=== PATIENT | female | born 1960 | race Caucasian/White ===

== ENCOUNTER → 2018-02-13 | Outpatient (CLI) | payer OTHER ==
[~2018-02-13] MED LIST: ATOR80 PO; ATORVASTATIN; CITA20 PO; HORMONES; LAMO100 PO; LISI5 PO; MEDICAL MARIJUANA; PROGESTERONE; QUET300 PO; Zofran4 MG PO
== END ==
LOC: LAB 10:51 → LAB SHORT 10:51
PROVIDERS: Obstetrics & Gynecology
DX: Z01.419 Encounter for gynecological examination (general) (routine) without abnormal findings (principal)
CPT/HCPCS: 87624; G0123

== ENCOUNTER → 2018-02-25 | Outpatient (CLI) | payer OTHER | END | disposition home or self-care (01) | LOC: PLD 12:38 → LAB SHORT 12:38 | DX: R87.810 Cervical high risk human papillomavirus (HPV) DNA test positive (principal) | CPT/HCPCS: 88305 ==

== ENCOUNTER → 2019-02-25 | Outpatient (CLI) | payer OTHER ==
[2019-02-27 15:06] LABS: HPV 16 Positive (Negative); HPV 18 Negative (Negative); HPV OTHER HR TYPES Negative (Negative)
== END | disposition home or self-care (01) ==
LOC: LAB 15:37 → LAB SHORT 15:37
PROVIDERS: Nurse Practitioner Obstetrics & Gynecology
DX: Z01.419 Encounter for gynecological examination (general) (routine) without abnormal findings (principal)
CPT/HCPCS: 87624; 87625; G0123

== ENCOUNTER → 2019-05-02 | Outpatient (CLI) | payer OTHER | END | disposition home or self-care (01) | LOC: LAB 11:51 → LAB SHORT 11:51 | DX: N89.9 Noninflammatory disorder of vagina, unspecified (principal) | CPT/HCPCS: 87529 ==

== ENCOUNTER → 2019-05-02 | Outpatient (CLI) | payer OTHER | END | disposition home or self-care (01) | LOC: LAB 14:14 → LAB SHORT 14:14 | DX: R87.618 Other abnormal cytological findings on specimens from cervix uteri (principal) | CPT/HCPCS: 88305 ==

== ENCOUNTER → 2019-09-08 | Outpatient (CLI) | payer OTHER ==
[2019-09-09 14:32] LABS: Stool Occult Bld Immuno 1 Positive (NEGATIVE)
== END ==
LOC: LAB SHORT 10:51 → LAB 10:51
PROVIDERS: Nurse Practitioner Family
DX: Z12.11 Encounter for screening for malignant neoplasm of colon (principal)
CPT/HCPCS: G0328

== ENCOUNTER → 2019-10-13 | Outpatient (CLI) | payer OTHER | END | disposition home or self-care (01) | LOC: LAB SHORT 09:28 → PLD 09:28 | DX: L57.0 Actinic keratosis (principal) | CPT/HCPCS: 88305 ==

== ENCOUNTER 2019-12-01 12:12 | Day surgery (SDC) | payer OTHER ==
[~2019-12-01] VITALS: Ht 175.3 cm; Wt 91.6 kg
[~2019-12-01 12:12] MED LIST changes: +ATOR40TA PO; +FENO160 PO; +LEVO-T125 MC1 PO; +Omega-31000 MG PO; +Prinivil10 MG PO; +WOMEN'S 50 PLU1 EACH PO; +[UNRECOGNIZED DRUG - OTHER]
--- NOTE | 2019-12-01 15:36 | NUR ---
12/01/19 1536 Concetta Garcia WHEN ASKED PT. IF SHE HAD ANY PAIN, PT. VERBALIZED FEELING "FULL", LIKE HAVING GAS IN HER COLON. PT. INSTRUCTED TO GO AHEAD & PASS OUT AIR IF FELT LIKE SHE NEEDED TO BUT EVENTUALLY THE AIR WOULD ABSORB SINCE IT WAS CARBON DIOXIDE.
== END 2019-12-01 15:35 | disposition home or self-care (01) ==
LOC: ORSCSDS 12:12
PROVIDERS: Student in an Organized Health Care Education/Training Program
PROC: 0DBB8ZX Excision of Ileum, Via Natural or Artificial Opening Endoscopic, Diagnostic (ICD-10-PCS; principal; 2019-12-01 14:30)
PROC: 0DBL8ZX Excision of Transverse Colon, Via Natural or Artificial Opening Endoscopic, Diagnostic (ICD-10-PCS; principal; 2019-12-01 14:30)
PROC: 0DBK8ZX Excision of Ascending Colon, Via Natural or Artificial Opening Endoscopic, Diagnostic (ICD-10-PCS; principal; 2019-12-01 14:30)
PROC: 0DBM8ZX Excision of Descending Colon, Via Natural or Artificial Opening Endoscopic, Diagnostic (ICD-10-PCS; principal; 2019-12-01 14:30)
PROC: 0DBP8ZX Excision of Rectum, Via Natural or Artificial Opening Endoscopic, Diagnostic (ICD-10-PCS; principal; 2019-12-01 14:30)
DX: R19.5 Other fecal abnormalities (principal); Z86.010 Personal history of colon polyps; D12.4 Benign neoplasm of descending colon; D12.2 Benign neoplasm of ascending colon; D12.3 Benign neoplasm of transverse colon; K62.1 Rectal polyp; K57.30 Diverticulosis of large intestine without perforation or abscess without bleeding; I10 Essential (primary) hypertension; E03.9 Hypothyroidism, unspecified; Z79.899 Other long term (current) drug therapy
CPT/HCPCS: 88305; J2704; J7120

== ENCOUNTER 2021-09-01 07:13 | Day surgery (SDC) | payer OTHER ==
[~2021-09-01] VITALS: Ht 175.3 cm; Wt 102.0 kg
== END 2021-09-01 10:20 | disposition home or self-care (01) ==
LOC: ORSCSDS 07:13
PROVIDERS: Obstetrics & Gynecology
PROC: 0UBC7ZX Excision of Cervix, Via Natural or Artificial Opening, Diagnostic (ICD-10-PCS; principal; 2021-09-01 08:30)
DX: N87.1 Moderate cervical dysplasia (principal); R87.810 Cervical high risk human papillomavirus (HPV) DNA test positive; I10 Essential (primary) hypertension; E78.5 Hyperlipidemia, unspecified; G61.0 Guillain-Barre syndrome; Z79.899 Other long term (current) drug therapy
CPT/HCPCS: 88305; J2250; J2370; J2704; J3010; J7120

== ENCOUNTER 2022-07-18 02:31 | Day surgery (SDC) | payer OTHER | END 2022-07-18 22:47 | disposition home or self-care (01) | LOC: WOUND 02:31 | DX: T21.34XD Burn of third degree of lower back, subsequent encounter (principal); T25.311D Burn of third degree of right ankle, subsequent encounter; T25.312D Burn of third degree of left ankle, subsequent encounter; T22.20XD Burn of second degree of shoulder and upper limb, except wrist and hand, unspecified site, subsequent encounter; T22.21 Burn of second degree of forearm; T24.111 Burn of first degree of right thigh; T25.221S Burn of second degree of right foot, sequela; X08.8XXS Exposure to other specified smoke, fire and flames, sequela; T31.20 Burns involving 20-29% of body surface with 0% to 9% third degree burns; I10 Essential (primary) hypertension; F31.70 Bipolar disorder, currently in remission, most recent episode unspecified; E03.9 Hypothyroidism, unspecified; D62 Acute posthemorrhagic anemia ==

== ENCOUNTER 2023-09-27 11:32 | Day surgery (SDC) | payer OTHER ==
[2023-09-25 11:56] LABS: BASOPHILS PERCENT AUTO 1 % (0-2); EOSINOPHILS ABSOLUTE AUTO 0.36 K/mm3 (0.00-0.68); EOSINOPHILS PERCENT AUTO 5 % (0-6); Hematocrit 37.3 % (33.0-51.0); Hemoglobin 12.3 g/dL (11.5-16.0); IMMATURE GRAN ABSOLUTE AUTO 0.07 K/mm3 (0.00-0.10); IMMATURE GRAN PERCENT AUTO 1 % (0-1); LYMPHOCYTES PERCENT AUTO 45 % (21-46); MONOCYTES ABSOLUTE AUTO 0.42 K/mm3 (0.16-1.47); MONOCYTES PERCENT AUTO 6 % (4-13); Mean Corpuscular HGB 29.6 pg (26.0-34.0); Mean Corpuscular Volume 90 fL (80-100); Mean Platelet Volume 10.2 fL (9.1-12.4); NEUTROPHILS PERCENT AUTO 41 % (41-73); Platelet Count 220 K/mm3 (150-400); RDW Coefficient Variation 12.9 % (11.7-14.2); RDW Standard Deviation 42.5 fL (35.1-46.3); Red Blood Cell Count 4.16 M/mm3 (3.80-5.20); White Blood Cell Count 7.05 K/mm3 (4.00-11.30)
[2023-09-25 13:39] LABS: Bun/Creatinine Ratio 19.3 (12.0-20.0); Calcium, Blood 8.8 mg/dL (8.5-10.1); Creatinine, Blood 0.83 mg/dL (0.40-1.00); Potassium, Blood 3.9 mmol/L (3.5-5.5)
[~2023-09-27] VITALS: Ht 175.3 cm; Wt 99.9 kg
[2023-09-27] VITALS (16 sets, daily range): BP systolic 126–163; BP diastolic 71–99
[2023-09-27] MEDS ORDERED: MIRT15ST PO (12:44)
[2023-09-27] MEDS ORDERED: VENL25 PO (12:44)
--- NOTE | 2023-09-27 13:02 | NUR ---
Ambulatory in Day Surgery Patient confirms NPO status and agrees with scheduled surgery. Pre-Op teaching done. Pt verbalizes understanding. History, Chart, Medications and Allergies reviewed before start of procedure.
--- NOTE | 2023-09-27 19:26 | NUR ---
ASSUMPTION OF CARE REPORT RECEIVED FROM RACHEAL CADENA. PT RECENTLY ARRIVED TO THE FLOOR AFTER SURGERY. PT REPORTS DISCOMFOT IN ABD. 02 SAT >95% ON 2L NC. PT VERY DROWSY AT THIS TIME. PINEDA DRAINING TO GRAVITY. CALL LIGHT WITHIN REACH, BED IN LOWEST POSITION.
[2023-09-28 04:17] VITALS: BP 106/66
[2023-09-28 04:37] LABS: BASOPHILS ABSOLUTE AUTO 0.02 K/mm3 (0.00-0.23); BASOPHILS PERCENT AUTO 0 % (0-2); EOSINOPHILS PERCENT AUTO 0 % (0-6); Hematocrit 34.7 % (33.0-51.0); Hemoglobin 11.6 g/dL (11.5-16.0); IMMATURE GRAN ABSOLUTE AUTO 0.07 K/mm3 (0.00-0.10); IMMATURE GRAN PERCENT AUTO 1 % (0-1); LYMPHOCYTES ABSOLUTE AUTO 1.51 K/mm3 (0.84-5.20); LYMPHOCYTES PERCENT AUTO 13 % (21-46); MONOCYTES ABSOLUTE AUTO 0.43 K/mm3 (0.16-1.47); MONOCYTES PERCENT AUTO 4 % (4-13); Mean Corpuscular HGB 29.8 pg (26.0-34.0); Mean Corpuscular HGB Conc 33.4 g/dL (31.5-36.5); Mean Corpuscular Volume 89 fL (80-100); Mean Platelet Volume 10.2 fL (9.1-12.4); NEUTROPHILS ABSOLUTE AUTO 9.21 K/mm3 (1.96-9.15); NEUTROPHILS PERCENT AUTO 82 % (41-73); Platelet Count 215 K/mm3 (150-400); RDW Coefficient Variation 12.5 % (11.7-14.2); RDW Standard Deviation 40.8 fL (35.1-46.3); Red Blood Cell Count 3.89 M/mm3 (3.80-5.20); White Blood Cell Count 11.24 K/mm3 (4.00-11.30)
--- NOTE | 2023-09-28 06:19 | NUR ---
SHIFT SUMMARY POD 1 TOTAL LAP HYSTR. NO ACUTE CHANGES OVERNIGHT. VS WNL FOR PT. LAP SITE x4 C/D/I. PT REPORTS PAIN TOLERABLE, MEDICATED PER EMAR. PT AMBULATED IN THE HALLS x2 c FWW OVERNIGHT, TOLERATED WELL. PINEDA D/C'd THIS AM, YELLOW URINE WITHOUT CLOTS. PT WEARING ATTENS, SCANT SANGUINEOUS DRAINAGE. ANTICIPATED DISCHARGE LATER TODAY. CALL LIGHT WITHIN REACH, BED IN LOWEST POSITION, WILL REPORT TO DAY RN.
[2023-09-28 07:26] VITALS: BP 135/67
[2023-09-28] MEDS ORDERED: Percocet 5-3251 EACH PO (10:33)
[2023-09-28] MEDS ORDERED: PROM25 PO (10:33)
[2023-09-28] MEDS ORDERED: IBUP400 PO (10:33)
[2023-09-28] MEDS ORDERED: SIME80CH PO (10:34)
--- NOTE | 2023-09-28 10:54 | NUR ---
DISCHARGE NOTE: PATIENT WAS EDUCATED ON DISCHARGE INSTRUCTIONS. SHE VERBALIZED UNDERSTANDING OF INSTRUCTIONS AND HAD NO FURTHER QUESTIONS AT THIS TIME. IV WAS TAKEN OUT AND WNL. PAIN IS MANAGED WITH PO PAIN MEDS. HER ABD HAS X4 LAP SITES WITH WOUND GLUE THAT ARE C/D/I. DENIES NAUSEA OR VOMITING. SHE IS TOLERATING PO INTAKE AND IS VOIDING/PASSING GAS. PATIENT IS DRESSED AND HAS ABD BINDER IN PLACE. SHE HAS ALL PERSONAL BELONGINGS GATHERED. PATIENT IS NOW WAITING FOR HER BOYFRIEND TO ARRIVE TO TAKE HER HOME.
--- NOTE | 2023-09-28 11:08 | NUR ---
PATIENT IS BEING WHEELCHAIRED OUT TO HER BOYFRIENDS CAR TO BE TAKEN HOME. SHE HAS ALL OF HER PERSONAL BELONGINGS WITH HER WELL.
== END 2023-09-28 11:09 | disposition home or self-care (01) ==
LOC: ORSCMMR 11:32 → ORD 13:00 → SURS 18:33 → ORSCMMR 09-28 11:09
PROVIDERS: Obstetrics & Gynecology
PROC: 0UT2FZZ Resection of Bilateral Ovaries, Via Natural or Artificial Opening With Percutaneous Endoscopic Assistance (ICD-10-PCS; principal; 2023-09-27 13:00)
PROC: 0UT7FZZ Resection of Bilateral Fallopian Tubes, Via Natural or Artificial Opening With Percutaneous Endoscopic Assistance (ICD-10-PCS; principal; 2023-09-27 13:00)
PROC: 0UT9FZZ Resection of Uterus, Via Natural or Artificial Opening With Percutaneous Endoscopic Assistance (ICD-10-PCS; principal; 2023-09-27 13:00)
DX: N87.0 Mild cervical dysplasia (principal); R87.810 Cervical high risk human papillomavirus (HPV) DNA test positive; I10 Essential (primary) hypertension; F17.210 Nicotine dependence, cigarettes, uncomplicated; E78.00 Pure hypercholesterolemia, unspecified; E11.9 Type 2 diabetes mellitus without complications; G61.0 Guillain-Barre syndrome; F32.A Depression, unspecified; F41.9 Anxiety disorder, unspecified; E05.90 Thyrotoxicosis, unspecified without thyrotoxic crisis or storm; F43.10 Post-traumatic stress disorder, unspecified; K66.0 Peritoneal adhesions (postprocedural) (postinfection); Z79.899 Other long term (current) drug therapy
CPT/HCPCS: 36415; 80048; 82947; 85025; 86850; 86900; 86901; 88307; A9270; J0330; J0690; J1100; J1170; J1885; J2250; J2405; J2710; J3010; J7120

== ENCOUNTER 2024-02-07 07:54 | Day surgery (SDC) | payer OTHER ==
[~2024-02-07] VITALS: Ht 175.3 cm; Wt 99.1 kg
[2024-02-07] VITALS (15 sets, daily range): BP systolic 98–138; BP diastolic 75–95
[~2024-02-07 07:54] MED LIST changes: +FENOFIBRATE145 MG PO; +IBUP400 PO; +Lactated Ringer's 1,000 ML IV SCH; +MIRT15ST PO; +PROM25 PO; +Percocet 5-3251 EACH PO; +SIME80CH PO; +VENL25 PO; +VENL37.5ER PO
--- NOTE | 2024-02-07 08:43 | NUR ---
History, Chart, Medications and Allergies reviewed before start of procedure. Patient confirms NPO status and agrees with scheduled surgery. Lungs clear T/O to Auscultation. Patient states colon prep results clear. Pre-Op teaching done. Pt verbalizes understanding. Patient States Post-Procedure ride home has been arranged.
[2024-02-07] MEDS ORDERED: propofoL 40 ML IV ONE (08:58)
--- NOTE | 2024-02-07 09:12 | NUR ---
02/07/24 0912 Stacey Velez HISTORY, CHART, MEDICATIONS AND ALLERGIES REVIEWED BEFORE START OF PROCEDURE. PATIENT CONFIRMS NPO STATUS AND AGREES WITH SCHEDULED PROCEDURE. 3-LEAD EKG REVIEWED WITH PHYSICIAN PRIOR TO START OF PROCEDURE. MONITOR INTACT WITH CONTINUOUS PULSE OXIMETRY,CAPNOGRAPHY, 3-LEAD EKG, INTERMITTENT BP. SUPPLEMENTAL O2 TO BE TITRATED THROUGHOUT PROCEDURE TO MAINTAIN O2 SATURATION ABOVE 90%. PATIENT DETERMINED TO BE ASA APPROPRIATE FOR PROPOFOL SEDATION PRIOR TO START OF PROCEDURE BY .MALLAMPATI CLASS 2 AIRWAY: COMPLETE VISUALIZATION OF THE UVULA.
[2024-02-07] MEDS ORDERED: Midazolam HCl 1MG / ML 2ML Vial ONE (09:24)
--- NOTE | 2024-02-07 10:14 | NUR ---
Patient up to Ambulate independently. Gait steady. Discharge instructions reviewed with patient. Patient verbalizes understanding. Copy given to patient to take home. Patient States Post-Procedure ride home has been arranged. Discharged via wheelchair to private car for ride home.
== END 2024-02-07 10:14 | disposition home or self-care (01) ==
LOC: ORSCMMR 07:54 → ORD 09:00 → ORSCMMR 10:14
PROVIDERS: Internal Medicine Gastroenterology
PROC: 0DBK8ZX Excision of Ascending Colon, Via Natural or Artificial Opening Endoscopic, Diagnostic (ICD-10-PCS; principal; 2024-02-07 09:00)
PROC: 0DBM8ZX Excision of Descending Colon, Via Natural or Artificial Opening Endoscopic, Diagnostic (ICD-10-PCS; principal; 2024-02-07 09:00)
DX: Z12.11 Encounter for screening for malignant neoplasm of colon (principal); Z86.010 Personal history of colon polyps; D12.2 Benign neoplasm of ascending colon; K63.5 Polyp of colon; I10 Essential (primary) hypertension; E78.00 Pure hypercholesterolemia, unspecified; F31.9 Bipolar disorder, unspecified; Z68.32 Body mass index [BMI] 32.0-32.9, adult; F32.A Depression, unspecified; E03.9 Hypothyroidism, unspecified; Z79.899 Other long term (current) drug therapy
CPT/HCPCS: 88305; J2250; J2704; J7120

== ENCOUNTER → 2025-02-26 | Outpatient (CLI) | payer OTHER | LOC: LAB SHORT 09:30 → LAB 09:30 | DX: F31.81 Bipolar II disorder (principal) ==

== ENCOUNTER → 2025-06-25 | Outpatient (CLI) | payer OTHER ==
[~2025-06-25] MED LIST changes: -Lactated Ringer's 1,000 ML IV SCH
[2025-06-25 14:51] LABS: CHOL/HDL RATIO 4.6; Cholesterol 206 mg/dL (50-200); HDL Cholesterol 45 mg/dL (>39); LDL/HDL RATIO Unable to Calculate; Low Density Lipoprotein Chol Unable to Calculate mg/dL (0-110); Triglycerides 566 mg/dL (30-160); Very Low Density Lipoprot Chol Unable to Calculate mg/dL (6-32)
== END ==
LOC: LAB 12:24 → LAB SHORT 12:24
PROVIDERS: Nurse Practitioner Family
DX: I10 Essential (primary) hypertension (principal); R73.03 Prediabetes
CPT/HCPCS: 80061; 83036